=== PATIENT | female | born 1985 | race Caucasian/White ===

== ENCOUNTER 2018-06-09 17:41 | Outpatient (CLI) | payer MEDICAID ==
[2018-06-09 18:31] LABS: Bilirubin,Urine NEG (Negative); Blood,Urine NEG (Negative); Color,Urine Straw (Yellow); Protein,Urine <15 mg/dL mg/dL (Negative); Urobilinogen,Urine < 2.0 mg/dL (<2.0)
== END 2018-06-09 22:43 | disposition home or self-care (01) ==
LOC: TRG 17:41 → LD 17:43 → TRG 22:43
PROVIDERS: ATTEND Obstetrics & Gynecology
DX: O47.1 False labor at or after 37 completed weeks of gestation (principal); Z3A.37 37 weeks gestation of pregnancy
CPT/HCPCS: 59025; 81001; 82962

== ENCOUNTER 2018-06-18 20:44 | Inpatient (IN) | payer MEDICAID ==
[2018-06-18] MEDS ORDERED: LACTATED RINGERS 2,000 ML ONE (22:57)
[2018-06-18] MEDS ORDERED: PITOCin/NS 20 UNIT/1000ML DRIP 20,000 MILLIUNITS/1,000 ML BAG IV ONE (22:57)
[2018-06-18] MEDS ORDERED: POLYCILLIN/NS 2 GM/100 ML 2 GM/100 ML BAG IV ONE (23:01)
[2018-06-18] MEDS ORDERED: STADOL IV PRN (23:01)
[2018-06-18] MEDS ORDERED: SUBLIMAZE IV PRN (23:01)
[2018-06-18] MEDS ORDERED: PITOCin/NS 20 UNIT/1000ML DRIP 20 UNITS/1,000 ML BAG IV SCH (23:45)
[2018-06-18] MEDS ORDERED: LACTATED RINGERS 1,000 ML IV SCH (23:45)
[2018-06-19] MEDS ORDERED: MINERAL OIL PO PRN (00:01)
[2018-06-19] MEDS ORDERED: BRETHINE SUB-Q PRN (00:01)
[2018-06-19] MEDS ORDERED: BRETHINE IVP PRN (00:01)
[2018-06-19 00:21] LABS: Hematocrit 37.7 % (30.3-42.9); Hemoglobin 11.9 gm/dl (10.1-14.3); Mean Corpuscular HGB Conc 32 % (30-34); Mean Corpuscular Hemoglobin 27 pg (28-32); Mean Corpuscular Volume 86 fl (79-97); Platelet Count 219 K/mm3 (140-440); Red Blood Count 4.39 M/mm3 (3.65-5.03); Red Cell Distribution Width 18.9 % (13.2-15.2)
[2018-06-19] MEDS ORDERED: AMPICILLIN/NS 1 GM/50 ML 1 GM/50 ML BAG IV SCH (03:00)
--- NOTE | 2018-06-19 04:17 | History and Physical Report ---
History of Present Illness Date of examination: 06/19/18 Date of admission: 06/18/18 22:36 Chief complaint: I'm in labor History of present illness: Patient is a 32 year old who presents in active labor at 39 weeks gestation. records are unavailable. Per patient, she has had an uncomplicated course. Patient speaks limited Ukrainian. Past History Past Medical History: no pertinent history Past Surgical History: no surgical history Social history: - Obstetrical History Expected Date of Delivery: 06/26/18 Actual Gestation: 39 Week(s) 0 Day(s) : 5 Para: 3 Medications and Allergies Allergies Allergy/AdvReac Type Severity Reaction Status Date / Time No Known Allergies Allergy Unverified 05/10/16 17:56 Home Medications Medication Instructions Recorded Confirmed Last Taken Type Calcium-Pnv 28-1-250 mg Sftgl 1 tab PO DAILY 05/11/16 06/19/18 1 Day Ago History ~05/10/16 Active Meds: Active Medications Butorphanol Tartrate (Stadol) 2 mg IV Q2H PRN PRN Reason: Labor Pain Fentanyl (Sublimaze) 100 mcg IV Q2H PRN PRN Reason: Labor Pain Lactated Ringer's (Lactated Ringers) 1,000 mls @ 125 mls/hr IV DIRECT GARRETT Last Admin: 06/18/18 23:38 Dose: 125 mls/hr Oxytocin/Sodium Chloride (Pitocin/Ns 20 Unit/1000ml Drip) 20 units in 1,000 mls @ 125 mls/hr IV DIRECT GARRETT Ampicillin Sodium (Ampicillin/Ns 1 Gm/50 Ml) 1 gm in 50 mls @ 100 mls/hr IV Q4H GARRETT; Protocol Last Admin: 06/19/18 02:52 Dose: 100 mls/hr Mineral Oil (Mineral Oil) 30 ml PO QHS PRN PRN Reason: Constipation Terbutaline Sulfate (Brethine) 0.25 mg SUB-Q ONCE PRN PRN Reason: Hyperstimulation/Hypertonicity Terbutaline Sulfate (Brethine) 0.25 mg IVP ONCE PRN PRN Reason: Hyperstimulation/Hypertonicity Review of Systems All systems: negative Genitourinary: contractions - Vital Signs Vital signs: Vital Signs Pulse BP 71 122/58 06/18/18 21:04 06/18/18 21:04 Temp Pulse Resp BP Pulse Ox 98.4 F 75 20 129/74 97 06/18/18 22:02 06/19/18 02:48 06/18/18 22:02 06/19/18 02:48 06/18/18 23:32 - Physical Exam Breasts: Cardiovascular: Regular rate, Normal S1, Normal S2 Lungs: Positive: Clear to auscultation, Normal air movement Abdomen: Positive: normal appearance, soft, normal bowel sounds. Negative: distention, tenderness Genitourinary (Female): Positive: normal external genitalia, normal perenium Vulva: both: normal Vagina: Positive: normal moisture. Negative: discharge Cervix: Negative: lesion, discharge Uterus: Positive: normal size, normal contour Adnexa: both: normal Anus/Rectum: Positive: normal perianal skin, heme negative. Negative: rectal mass, hemorrhoids Extremities: Deep Tendon Reflex Grade: Normal +2 - Obstetrical Cervical Dilatation: 7 Cervical Effacement Percentage: 80 station: -3 Uterine Contraction Pattern: Regular Results Result Diagrams: 06/19/18 00:00 Abnormal lab results 06/19/18 Range/Units 00:00 MCH 27 L (28-32) pg RDW 18.9 H (13.2-15.2) % All other labs normal. Assessment and Plan IUP at 39 weeks gestation in active labor. Will admit for labor and treat for unknown GBS. Anticipate .
--- NOTE | 2018-06-19 04:32 | Procedure Note ---
OB Delivery Note - Delivery Date of Delivery: 06/19/18 Surgeon: STARR SANTOYO Estimated blood loss: 100cc - Vaginal Delivery presentation: vertex Delivery position: OA Intrapartum events: none Delivery augmentation: rupture of membranes Delivery monitor: external FHT, external uterine Route of delivery: Delivery placenta: spontaneous Delivery cord: 3 umbilical vessels Episiotomy: none Delivery laceration: 1st degree Anesthesia: none Delivery comments: Viable female delivered over intact perineum and placed on maternal abdomen. Weight 7 pounds 15 ounces. apgars 9,9. Cord clamped and cut when done pulsing. Placenta delivered spontaneously and intact with 3vc. Patient tolerated procedure well. - Infant A at 1 minute: 8 at 5 minutes: 9 Gender: Female (7 pounds 15 ounces)
[2018-06-19] MEDS ORDERED: DULCOLAX PR PRN ×2 (04:37→04:39)
[2018-06-19] MEDS ORDERED: LANSINOH TP PRN ×2 (04:37→04:39)
[2018-06-19] MEDS ORDERED: BENADRYL PO PRN ×2 (04:37→04:39)
[2018-06-19] MEDS ORDERED: TYLENOL PO PRN ×2 (04:37→04:39)
[2018-06-19] MEDS ORDERED: TUCKS PAD TP PRN ×2 (04:37→04:39)
[2018-06-19] MEDS ORDERED: MILK OF MAGNESIA PO PRN (04:39)
[2018-06-19] MEDS ORDERED: PHENERGAN PO PRN (04:39)
[2018-06-19] MEDS ORDERED: NORCO 5/325 PO PRN (04:39)
[2018-06-19] MEDS ORDERED: ZOFRAN IV PRN (04:39)
[2018-06-19] MEDS ORDERED: SODIUM CHLORIDE FLUSH SYRINGE 10 ML IV NR (05:00)
[2018-06-19] MEDS ORDERED: MOTRIN PO SCH (05:00)
[2018-06-19] MEDS ORDERED: SODIUM CHLORIDE FLUSH SYRINGE 10 ML IV PRN (05:00)
[2018-06-19] MEDS: MOTRIN PO SCH ×3 (05:07→23:14)
[2018-06-19] MEDS: PRENATAL VITAMIN PO SCH (12:08)
[2018-06-19] MEDS: COLACE PO SCH ×2 (12:08→23:13)
[2018-06-19 15:31] LABS: Hematocrit 35.7 % (30.3-42.9); Hemoglobin 11.7 gm/dl (10.1-14.3)
[2018-06-20] MEDS: MOTRIN PO SCH ×3 (05:15→23:25)
[2018-06-20] MEDS ORDERED: BOOSTRIX IM ONE (06:00)
--- NOTE | 2018-06-20 08:27 | Progress Note ---
Assessment and Plan A: PPD#1 s/p at term, Gestational Diabetes A1 P: Routine care Discharge tomorrow Subjective - Subjective Date of service: 06/20/18 Principal diagnosis: s/p at term, gestational diabetes A1 Interval history: Pt without complaints Patient reports: appetite normal, voiding normally, pain well controlled, ambulating normally [place]: doing well Objective - Vital Signs Latest vital signs: Vital Signs Temp Pulse Resp BP 06/19/18 23:05 98.4 F 69 18 107/54 06/19/18 15:50 98.5 F 65 18 93/41 06/19/18 11:49 98.7 F 62 18 91/38 Intake and Output 06/19/18 06/20/18 06/20/18 22:59 06:59 14:59 Intake Total 360 480 Balance 360 480 Intake: Oral 360 Intake, Free Water 480 Other: Total, Intake Amount 240 # Voids Void 1 1 - Exam Breasts: Present: deferred Cardiovascular: Present: Regular rate Lungs: Present: Clear to auscultation Abdomen: Present: soft Uterus: Present: fundal height at umbilicus Extremities: Present: normal
--- NOTE | 2018-06-20 08:30 | Discharge Summary ---
Providers - Providers Date of Admission: 06/18/18 22:36 Date of discharge: 06/21/18 Attending physician: KARAN MARTINEZ 06/19/18 04:38 Consult to Offset Duplicating Machine Operator [CONS] Routine Reason For Exam: assistance with , SNS Primary care physician: KARAN MARTINEZ Hospitalization Reason for admission: active labor Delivery: Procedure details: Please see delivery note. Episiotomy: none Laceration: 1st degree complications: none Discharge diagnosis: IUP at term delivered [place] baby: female Hospital course: Pt was admitted in active labor and went on to have a spontaneous vaginal delivery which she tolerated well. Her course was uncomplicated and she met discharge criteria on PPD#2. Condition at discharge: Stable Disposition: DC-01 TO HOME OR SELFCARE - Discharge Diagnoses (1) Term of female Status: Acute (2) Gestational diabetes Status: Acute Qualifiers: Gestational diabetes mellitus control: diet-controlled Trimester: third trimester Qualified Code(s): O24.410 - Gestational diabetes mellitus in , diet controlled (3) Normal spontaneous vaginal delivery Status: Acute Plan - Discharge Medications Prescriptions: HYDROcodone/APAP 5-325 [[place] 5/325] 1 each PO Q6HR PRN #20 tablet PRN Reason: Pain Ibuprofen [Motrin] 800 mg PO Q8HR PRN #30 tablet PRN Reason: Pain, Moderate (4-6) - Provider Discharge Summary Activity: routine, no sex for 6 weeks, no heavy lifting 4 weeks, no strenuous exercise Diet: routine Instructions: routine Additional instructions: [] Smoking cessation referral if applicable(refer to patient education folder for contact #) [] Refer to [facility] Booklet Call your doctor immediately for: * Fever > 100.5 * Heavy vaginal bleeding ( >1 pad per hour) * Severe persistent headache * Shortness of breath * Reddened, hot, painful area to leg or breast * Drainage or odor from incision. * Keep incision clean and dry at all times and follow doctor's instructions regarding bathing/showering - Follow up plan Follow up: MARIA LUISA VO MD [Staff Physician] - 07/17/18 (Please call to schedule appt )
[2018-06-20] MEDS: COLACE PO SCH ×2 (12:12→23:25)
[2018-06-20] MEDS: PRENATAL VITAMIN PO SCH (12:13)
[2018-06-21] MEDS: MOTRIN PO SCH (06:15)
[2018-06-21 08:28] VITALS: BP 108/69
== END 2018-06-21 13:15 | disposition home or self-care (01) | DRG 775 ==
LOC: TRG 20:44 → LD 20:57 → TRG 22:35 → LD 22:36 → OB 06-19 06:12
PROVIDERS: ADMIT Obstetrics & Gynecology; ATTEND Obstetrics & Gynecology
PROC: 10907ZC Drainage of Amniotic Fluid, Therapeutic from Products of Conception, Via Natural or Artificial Opening (ICD-10-PCS; 2018-06-18)
PROC: 10E0XZZ Delivery of Products of Conception, External Approach (ICD-10-PCS; principal; 2018-06-19)
PROC: 3E0234Z Introduction of Serum, Toxoid and Vaccine into Muscle, Percutaneous Approach (ICD-10-PCS; 2018-06-20)
DX: O24.429 Gestational diabetes mellitus in childbirth, unspecified control (principal); Z3A.39 39 weeks gestation of pregnancy; Z37.0 Single live birth; Z23 Encounter for immunization; O70.0 First degree perineal laceration during delivery
CPT/HCPCS: 36415; 59025; 85014; 85018; 85027; 86592; 86706; 86762; 86900; 86901; 87806; 96360; 96361; 96365; 99211; G0463; J0290; J2590; J3010; J7120

== ENCOUNTER 2020-06-15 10:27 | Inpatient (IN) | payer MEDICAID ==
[2020-06-15] MEDS ORDERED: LIDOCAINE (2%) 20 MG/1 ML VIAL 20 ML MDV INFILTRATI ONE ×2 (11:04→11:54)
[2020-06-15] MEDS ORDERED: LACTATED RINGERS 1,000 ML ONE (11:04)
[2020-06-15] MEDS ORDERED: OXYTOCIN 20 UNIT/1000ML DRIP 40,000 MILLIUNITS/2,000 ML BAG IV ONE (11:04)
[2020-06-15] MEDS ORDERED: AMPICILLIN 2 GM in SODIUM CHLORIDE 0.9% 50 ML IV ONE (11:08)
[2020-06-15] MEDS ORDERED: AMPICILLIN/NS 2 GM/100 ML 2 GM/100 ML BAG IV ONE (11:10)
[2020-06-15] MEDS ORDERED: ePHEDrine SULFATE 50 MG/1 ML INJ IV PRN (11:54)
[2020-06-15] MEDS ORDERED: MINERAL OIL 30 ML ORAL LIQD PO PRN (11:54)
[2020-06-15] MEDS ORDERED: fentaNYL 100 MCG/2 ML INJ IV PRN (11:54)
[2020-06-15] MEDS ORDERED: ONDANSETRON 4 MG/2 ML INJ IV PRN ×2 (11:54→16:53)
[2020-06-15] MEDS ORDERED: BUTORPHANOL 2 MG/1 ML INJ IV PRN ×2 (11:54)
[2020-06-15] MEDS ORDERED: TERBUTALINE 1 MG/1 ML INJ SUB-Q PRN (11:54)
[2020-06-15] MEDS ORDERED: NalbUPHINE 10 MG/1 ML INJ IV PRN (11:54)
[2020-06-15] MEDS ORDERED: ACETAMINOPHEN 325 MG TAB PO PRN ×2 (11:54→16:53)
[2020-06-15] MEDS ORDERED: OXYTOCIN DRIP 30 UNITS/500 ML BAG IV SCH (12:00)
[2020-06-15] MEDS ORDERED: AMPICILLIN 2 GM in SODIUM CHLORIDE 0.9% 100 ML IV ONE (12:00)
[2020-06-15] MEDS ORDERED: LACTATED RINGERS 1,000 ML IV SCH (12:00)
[2020-06-15] MEDS ORDERED: OXYTOCIN 20 UNIT/1000ML DRIP 20 UNITS/1,000 ML BAG IV SCH (12:00)
[2020-06-15 12:32] LABS: Hematocrit 36.2 % (30.3-42.9); Hemoglobin 12.4 gm/dl (10.1-14.3); Mean Corpuscular HGB Conc 34 % (30-34); Mean Corpuscular Volume 79 fl (79-97); Platelet Count 180 K/mm3 (140-440); Red Blood Count 4.57 M/mm3 (3.65-5.03); Red Cell Distribution Width 15.6 % (13.2-15.2)
[2020-06-15] MEDS ORDERED: AMPICILLIN/NS 1 GM/50 ML 1 GM/50 ML BAG IV SCH (14:00)
--- NOTE | 2020-06-15 14:53 | History and Physical Report ---
History of Present Illness Date of examination: 06/15/20 Date of admission: 06/15/20 11:22 Chief complaint: I'm in labor History of present illness: Pt is Past History - Obstetrical History : 5 Medications and Allergies Allergies Allergy/AdvReac Type Severity Reaction Status Date / Time Sulfa (Sulfonamide Allergy Hives Verified 06/14/19 16:20 Antibiotics) Home Medications Medication Instructions Recorded Confirmed Last Taken Type Doxycycline Hyclate [Doxycycline 100 mg PO Q12HR #14 tab 06/15/19 Unknown Rx Hyclate TAB] HYDROcodone/APAP 5-325 [[place] 1 each PO Q6HR PRN #20 tablet 06/15/19 Unknown Rx 5/325] Ibuprofen [Motrin] 800 mg PO Q8HR PRN #30 tablet 06/15/19 Unknown Rx Active Meds: Active Medications Acetaminophen (Tylenol) 650 mg PO Q4H PRN PRN Reason: Pain, Mild (1-3) Butorphanol Tartrate (Stadol) 1 mg IV Q2H PRN PRN Reason: Pain, Moderate(4-6) LABOR PAIN Butorphanol Tartrate (Stadol) 2 mg IV Q2H PRN PRN Reason: Pain , Severe (7-10) Ephedrine Sulfate (Ephedrine Sulfate) 10 mg IV Q2M PRN PRN Reason: Hypotension Fentanyl (Sublimaze) 100 mcg IV Q2H PRN PRN Reason: Pain,Severe (7-10) LABOR PAIN Last Admin: 06/15/20 13:18 Dose: 100 mcg Documented by: Ampicillin Sodium (Ampicillin/Ns 1 Gm/50 Ml) 1 gm in 50 mls @ 100 mls/hr IV Q4HR GARRETT; Protocol Oxytocin/Sodium Chloride (Pitocin/Ns 30 Unit/500ml) 30 units in 500 mls @ 2 mls/hr IV TITR GARRETT; Protocol Lactated Ringer's (Lactated Ringers) 1,000 mls @ 125 mls/hr IV DIRECT GARRETT Oxytocin/Sodium Chloride (Pitocin/Ns 20 Unit/1000ml Drip) 20 units in 1,000 mls @ 125 mls/hr IV DIRECT GARRETT Mineral Oil (Mineral Oil) 30 ml PO QHS PRN PRN Reason: Constipation Nalbuphine HCl (Nalbuphine) 10 mg IV Q2H PRN PRN Reason: Pain, Moderate (4-6) Ondansetron HCl (Zofran) 4 mg IV Q8H PRN PRN Reason: Nausea And Vomiting Terbutaline Sulfate (Brethine) 0.25 mg SUB-Q ONCE PRN PRN Reason: Hyperstimulation/Hypertonicity - Vital Signs Vital signs: Vital Signs Pulse BP 75 132/77 06/15/20 10:49 06/15/20 10:49 Temp Pulse Resp BP Pulse Ox 98.7 F 72 20 112/58 90 06/15/20 11:28 06/15/20 14:47 06/15/20 13:18 06/15/20 14:47 06/15/20 14:08 Results Result Diagrams: 06/15/20 08:30 Abnormal lab results 06/15/20 Range/Units 08:30 MCH 27 L (28-32) pg RDW 15.6 H (13.2-15.2) % All other labs normal.
--- NOTE | 2020-06-15 15:44 | Procedure Note ---
OB Delivery Note - Delivery Date of Delivery: 06/15/20 Estimated blood loss: 200cc - Vaginal Delivery presentation: vertex Delivery position: OA Intrapartum events: none Delivery induction: none Delivery monitor: external FHT, external uterine Route of delivery: Delivery placenta: spontaneous Delivery cord: 3 umbilical vessels Episiotomy: none Delivery laceration: none Anesthesia: none Delivery comments: Viable male delivered precipitously with nursing assistance at 1411 PM. Weight 8 pounds 0 ounces, Apgars 8 and 9. Infant had spontaneous cry and was placed on maternal abdomen. Placenta delivered spontaneously and intact . No lacerations noted. Excellent hemostasis. - A at 1 minute: 8 at 5 minutes: 9 Infant Gender: Male
[2020-06-15] MEDS ORDERED: LANOLIN/ZINC/DIMETHICONE (LANSINOH) 7 GM TP PRN (16:53)
[2020-06-15] MEDS ORDERED: PROMETHAZINE 25 MG RECT SUPP PR PRN (16:53)
[2020-06-15] MEDS ORDERED: HYDROcodone/ACETAMINOPHEN 5-325 MG TAB PO PRN (16:53)
[2020-06-15] MEDS ORDERED: WITCH HAZEL/ GLYCERIN PAD TP PRN (16:53)
[2020-06-15] MEDS ORDERED: diphenhydrAMINE 25 MG CAP PO PRN (16:53)
[2020-06-15] MEDS ORDERED: PROMETHAZINE 25 MG TAB PO PRN (16:53)
[2020-06-15] MEDS ORDERED: MAGNESIUM HYDROXIDE (MOM) ORAL LIQD UDC PO PRN (16:53)
[2020-06-15] MEDS: IBUPROFEN 600 MG TAB PO SCH ×2 (17:07→23:29)
[2020-06-15] MEDS: DOCUSATE SODIUM 100 MG CAP PO SCH (23:31)
[2020-06-16 06:39] LABS: Hematocrit 32.7 % (30.3-42.9); Hemoglobin 10.9 gm/dl (10.1-14.3)
--- NOTE | 2020-06-16 08:36 | Progress Note ---
Assessment and Plan A: PPD#1 s/p at term GDM Pt desires discharge today P: Discharge today with follow up in 4 wks with Mabel Qureshi. Subjective - Subjective Date of service: 06/16/20 Principal diagnosis: s/p at term, GDM Interval history: Pt without overnight events. Desires discharge today. Patient reports: appetite normal, voiding normally, pain well controlled, ambulating normally : doing well Objective - Vital Signs Latest vital signs: Vital Signs Temp Pulse Resp BP BP Pulse Ox 06/15/20 23:59 98.0 F 59 L 18 110/55 98 06/15/20 23:29 16 06/15/20 20:08 98.0 F 59 L 20 101/40 99 06/15/20 16:27 98.4 F 48 L 20 108/53 97 06/15/20 15:16 98.5 F 06/15/20 15:02 59 L 117/69 06/15/20 14:47 72 112/58 06/15/20 14:30 59 L 110/55 06/15/20 14:24 62 112/57 06/15/20 14:08 62 90 06/15/20 14:03 80 97 06/15/20 14:01 74 122/77 06/15/20 13:58 73 95 06/15/20 13:53 69 95 06/15/20 13:48 55 L 96 06/15/20 13:43 68 95 06/15/20 13:38 69 95 06/15/20 13:33 74 95 06/15/20 13:31 62 127/68 06/15/20 13:28 65 94 06/15/20 13:23 65 97 06/15/20 13:18 49 L 20 94 06/15/20 13:13 63 95 06/15/20 13:08 48 L 98 06/15/20 13:03 66 96 06/15/20 13:00 67 125/68 06/15/20 12:58 56 L 98 06/15/20 12:53 69 96 06/15/20 12:48 70 96 06/15/20 12:43 69 97 06/15/20 12:38 73 97 06/15/20 12:34 67 124/62 06/15/20 12:33 69 97 06/15/20 12:24 75 95 06/15/20 12:19 71 96 06/15/20 12:14 74 96 06/15/20 12:09 68 96 06/15/20 12:04 56 L 97 06/15/20 12:00 73 118/66 06/15/20 11:59 70 96 06/15/20 11:54 75 96 06/15/20 11:49 71 96 06/15/20 11:44 77 96 06/15/20 11:39 53 L 96 06/15/20 11:34 63 97 06/15/20 11:29 74 96 06/15/20 11:28 98.7 F 52 L 134/72 134/72 06/15/20 11:24 68 97 06/15/20 11:00 99.3 F 16 06/15/20 10:49 75 132/77 Intake and Output 06/15/20 06/16/20 06/16/20 22:59 06:59 14:59 Intake Total 360 360 Output Total 400 100 Balance -40 260 Intake: Oral 240 Intake, Free Water 120 360 Output: Urine 400 100 Void 400 100 Other: Total, Intake Amount 120 Total, Output Amount 400 100 # Voids Void 1 - Exam Breasts: Present: deferred Abdomen: Present: soft Uterus: Present: fundal height below umbilicus Extremities: Present: normal - Labs Labs: Abnormal lab results 06/15/20 Range/Units 08:30 MCH 27 L (28-32) pg RDW 15.6 H (13.2-15.2) %
--- NOTE | 2020-06-16 08:41 | Discharge Summary ---
Providers - Providers Date of Admission: 06/15/20 11:22 Date of discharge: 06/16/20 Attending physician: KARAN MARTINEZ Primary care physician: KARAN MARTINEZ Hospitalization Reason for admission: active labor Delivery: Procedure details: Please see delivery note. Episiotomy: none Laceration: none Incision: normal Other procedures: none complications: none Discharge diagnosis: IUP at term delivered baby: female Hospital course: Pt was admitted in labor and underwent which she tolerated well. Her course was uncomplicated and she met discharge criteria on PPD#1. She will follow up in 4 wks in the office. Condition at discharge: Stable Disposition: DC-01 TO HOME OR SELFCARE - Discharge Diagnoses (1) Term of female Status: Acute (2) Obesity (BMI 30.0-34.9) Status: Acute (3) Gestational diabetes Status: Acute Qualifiers: Gestational diabetes mellitus control: diet-controlled Trimester: third trimester Qualified Code(s): O24.410 - Gestational diabetes mellitus in , diet controlled Plan - Discharge Medications Prescriptions: Ibuprofen [Motrin] 800 mg PO Q8HR PRN #30 tablet PRN Reason: Pain, Moderate (4-6) HYDROcodone/APAP 5-325 [[place] 5/325] 1 each PO Q6HR PRN #15 tablet PRN Reason: Pain - Provider Discharge Summary Activity: routine, no sex for 6 weeks, no heavy lifting 4 weeks, no strenuous exercise Diet: routine Instructions: routine Additional instructions: [] Smoking cessation referral if applicable(refer to patient education folder for contact #) [] Refer to [facility]'s [facility] Booklet Call your doctor immediately for: * Fever > 100.5 * Heavy vaginal bleeding ( >1 pad per hour) * Severe persistent headache * Shortness of breath * Reddened, hot, painful area to leg or breast * Drainage or odor from incision. * Keep incision clean and dry at all times and follow doctor's instructions regarding bathing/showering - Follow up plan Follow up: RACHEL ESPINOZA NP [Referring] - 07/14/20 (Please call to schedule your appt )
[2020-06-16] MEDS: IBUPROFEN 600 MG TAB PO SCH ×3 (12:34→23:28)
[2020-06-16] MEDS: PRENATAL VIT27-FE FUMARATE-FOLIC ACID VIT TAB PO SCH (12:35)
[2020-06-16] MEDS: DOCUSATE SODIUM 100 MG CAP PO SCH ×2 (12:35→23:28)
[2020-06-17] MEDS ORDERED: DIPHtheria,PERTUSSIS(ACELL),TETANUS VACCINE/PF 0.5 ML VIAL IM ONE (05:06)
[2020-06-17] MEDS: IBUPROFEN 600 MG TAB PO SCH ×2 (05:34→09:55)
[2020-06-17] MEDS: DOCUSATE SODIUM 100 MG CAP PO SCH (09:55)
[2020-06-17] MEDS: PRENATAL VIT27-FE FUMARATE-FOLIC ACID VIT TAB PO SCH (09:55)
[2020-06-17 14:12] VITALS: BP 122/65
== END 2020-06-17 14:40 | disposition home or self-care (01) | DRG 775 ==
LOC: TRG 10:27 → APU 10:29 → TRG 11:21 → LD 11:22 → OB 16:53
PROVIDERS: ADMIT Obstetrics & Gynecology; ATTEND Obstetrics & Gynecology
PROC: 10E0XZZ Delivery of Products of Conception, External Approach (ICD-10-PCS; principal; 2020-06-15)
PROC: 3E0234Z Introduction of Serum, Toxoid and Vaccine into Muscle, Percutaneous Approach (ICD-10-PCS; 2020-06-17)
DX: O24.410 Gestational diabetes mellitus in pregnancy, diet controlled (principal); E66.9 Obesity, unspecified; Z88.2 Allergy status to sulfonamides; O62.3 Precipitate labor; Z3A.00 Weeks of gestation of pregnancy not specified; Z37.0 Single live birth; O99.214 Obesity complicating childbirth; Z23 Encounter for immunization
CPT/HCPCS: 36415; 59025; 85014; 85018; 85027; 86592; 86850; 86900; 86901; 90715; 96360; 96361; 96365; 96374; G0378; J0290; J2590; J3010; J7120